=== PATIENT | female | born 1930 | race Caucasian/White ===

== ENCOUNTER 2018-09-06 15:12 | Emergency (ER) | payer MEDICARE, BC ==
[~2018-09-06] VITALS: Ht 162.6 cm; Wt 62.1 kg
[2018-09-06] MEDS ORDERED: WARFARIN SODIUM2 MG PO (15:22)
[2018-09-06] MEDS ORDERED: ULTRAM50 MG PO (17:19)
== END 2018-09-06 17:49 | disposition home or self-care (01) ==
LOC: ED 15:12
DX: S22.32XA Fracture of one rib, left side, initial encounter for closed fracture (principal); M32.9 Systemic lupus erythematosus, unspecified; Z86.711 Personal history of pulmonary embolism; Z87.891 Personal history of nicotine dependence; Z88.0 Allergy status to penicillin; Z88.2 Allergy status to sulfonamides; Z88.8 Allergy status to other drugs, medicaments and biological substances; Z79.01 Long term (current) use of anticoagulants; W01.10XA Fall on same level from slipping, tripping and stumbling with subsequent striking against unspecified object, initial encounter
CPT/HCPCS: 36415; 71101; 85610; 99283-25